=== PATIENT | female | born 1990 | race African-American/Black ===

== ENCOUNTER 2017-08-02 19:15 | Emergency (ER) | payer OTHER, SELFPAY ==
[2017-08-02] MEDS ORDERED: Lidocaine 2% w/Epinephrine 1:200K 20 ML VIAL ONE (19:39)
[2017-08-02] MEDS ORDERED: Clindamycin 150 MG CAP ONE (19:39)
[2017-08-02] MEDS ORDERED: HYDROcodone/Acetaminophen 5/325 mg Tablet ONE (20:10)
[2017-08-02] MEDS ORDERED: Bacitracin Zinc 1 Packet ONE (20:11)
[2017-08-02] MEDS ORDERED: Acetaminophen 325 MG TAB ONE (20:11)
== END 2017-08-02 20:21 | disposition home or self-care (01) ==
LOC: MADERS 19:15
DX: L02.415 Cutaneous abscess of right lower limb (principal)
CPT/HCPCS: 10060

== ENCOUNTER 2017-09-17 20:00 | Emergency (ER) | payer OTHER ==
[2017-09-17 20:37] LABS: Bilirubin Negative (Negative); Blood, Urine Negative (Negative); Clarity Clear (Clear); Glucose, Urine (Dipstick) Negative (Negative); Leukocyte Negative (Negative); Nitrite Negative (Negative); Protein, Urine (Dipstick) Negative (Neg-Trace); Specific Gravity, Urine 1.025 (1.005-1.030); pH, Urine 6.5 (5.0-9.0)
[2017-09-17 20:39] LABS: Pregnancy Test - Urine (BHCG) Negative (Negative); Pregu Control Background? CLEAR/WHITE (CLR/WHITE); Pregu Control Bar Appear? YES (CONTROL BAR); Specific Gravity 1.025 (1.002-1.036)
== END 2017-09-17 20:52 | disposition home or self-care (01) ==
LOC: MADERS 20:00
DX: R10.30 Lower abdominal pain, unspecified (principal)
CPT/HCPCS: 81003; 81025; 99284

== ENCOUNTER 2017-12-13 23:55 | Emergency (ER) | payer OTHER, SELFPAY | END 2017-12-14 00:36 | disposition left against medical advice (07) | LOC: MADERS 23:55 | DX: Z53.21 Procedure and treatment not carried out due to patient leaving prior to being seen by health care provider (principal) ==

== ENCOUNTER 2019-01-12 08:54 | Emergency (ER) | payer MEDICAID, OTHER ==
[2019-01-12] MEDS ORDERED: Ondansetron ODT 4 MG TAB ONE (09:23)
== END 2019-01-12 09:31 | disposition home or self-care (01) ==
LOC: MADERS 08:54
DX: R10.9 Unspecified abdominal pain (principal); R11.2 Nausea with vomiting, unspecified; R19.7 Diarrhea, unspecified
CPT/HCPCS: 99283; Q0162

== ENCOUNTER 2019-04-12 13:44 | Emergency (ER) | payer OTHER, SELFPAY ==
[2019-04-12 14:19] LABS: Bilirubin Small (Negative); Blood, Urine Negative (Negative); Clarity Hazy (Clear); Glucose, Urine (Dipstick) Negative (Negative); Leukocyte Negative (Negative); Nitrite Negative (Negative); Pregnancy Test - Urine (BHCG) POSITIVE (Negative); Pregu Control Background? CLEAR/WHITE (CLR/WHITE); Pregu Control Bar Appear? YES (CONTROL BAR); Protein, Urine (Dipstick) Negative (Neg-Trace); Specific Gravity 1.025 (1.002-1.036)
[2019-04-12 14:49] LABS: ALT (SGPT) 12 U/L (8-55); AST (SGOT) 17 U/L (5-34); Albumin 3.8 g/dL (3.5-5.0); Alkaline Phosphatase 66 U/L (40-110); Anion Gap 13 mmol/L (10-20); BUN (Urea Nitrogen) 9 mg/dL (7.0-18.7); Bilirubin, Total 0.7 mg/dL (0.2-1.2); Calc. Creatinine Clearance 0 mL/min (70-130); Calcium 8.4 mg/dL (7.8-10.44); Carbon Dioxide 24 mmol/L (22-29); Chloride 107 mmol/L (98-107); Estimated GFR-MDRD Greater than 90; Glucose 83 mg/dL (70-105); Lipase 21 U/L (8-78); Potassium 4.5 mmol/L (3.5-5.1); Protein, Total 6.8 g/dL (6.0-8.3); Sodium 139 mmol/L (136-145)
[2019-04-12 14:50] LABS: Band 1 % (5-11); Hemoglobin 12.1 g/dL (12.0-16.0); Lymphocytes 15 % (21-51); MDiff Complete? YES; Mean Corpuscular HGB CONC 30.8 g/dL (32.0-36.0); Mean Corpuscular Hemoglobin 29.9 pg (27.0-31.0); Mean Corpuscular Volume 97.1 fL (78.0-98.0); Mean Platelet Volume 7.4 fL (7.4-10.4); Monocytes 6 % (0-10); Neutrophil 62 % (42-75); Platelet Count 269 thou/uL (130-400); Platelet Morphology Comment Appears Adequate; RBC Distribution Width 11.7 % (11.5-14.5); RBC Morphology Normal; Reactive Lymphocytes 16 % (0-10); Red Blood Cell (RBC) Count 4.04 mill/uL (4.20-5.40); White Blood Cell (WBC) Count 4.9 thou/uL (4.8-10.8)
== END 2019-04-12 15:50 | disposition short-term general hospital (02) ==
LOC: MADERS 13:44
DX: O99.89 Other specified diseases and conditions complicating pregnancy, childbirth and the puerperium (principal); R10.30 Lower abdominal pain, unspecified; Z3A.01 Less than 8 weeks gestation of pregnancy
CPT/HCPCS: 36415; 80053; 81003; 81025; 83690; 84702; 85025; 99284

== ENCOUNTER 2019-06-04 13:22 | Emergency (ER) | payer OTHER, SELFPAY | END 2019-06-04 14:41 | disposition home or self-care (01) | LOC: MADERS 13:22 | DX: J11.1 Influenza due to unidentified influenza virus with other respiratory manifestations (principal) | CPT/HCPCS: 99283 ==

== ENCOUNTER → 2019-06-25 | Emergency (ER) | payer OTHER ==
[2019-06-25 18:05] LABS: Bilirubin Negative (Negative); Blood, Urine Large (Negative); Glucose, Urine (Dipstick) Negative (Negative); Leukocyte Trace (Negative); Nitrite Negative (Negative); Protein, Urine (Dipstick) 100 mg/dL (Neg-Trace)
[2019-06-25 18:14] LABS: Clarity Cloudy (Clear)
[2019-06-25 18:15] LABS: RBC/HPF Greater than 50 HPF (0-3)
[2019-06-25 18:16] LABS: Bacteria/HPF Rare-Few HPF (None Seen); WBC/HPF 0-3 HPF (0-3)
[2019-06-25 18:37] LABS: Band 1 % (5-11); Eosinophils 1 % (0-10); Hemoglobin 10.8 g/dL (12.0-16.0); Lymphocytes 13 % (21-51); MDiff Complete? YES; Mean Corpuscular HGB CONC 31.1 g/dL (32.0-36.0); Mean Corpuscular Hemoglobin 29.5 pg (27.0-31.0); Mean Corpuscular Volume 94.8 fL (78.0-98.0); Mean Platelet Volume 7.2 fL (7.4-10.4); Monocytes 4 % (0-10); Neutrophil 66 % (42-75); Platelet Count 264 thou/uL (130-400); Platelet Morphology Comment Appears Adequate; Reactive Lymphocytes 15 % (0-10); Red Blood Cell (RBC) Count 3.66 mill/uL (4.20-5.40); White Blood Cell (WBC) Count 7.6 thou/uL (4.8-10.8)
[2019-06-25 18:54] LABS: Anion Gap 13 mmol/L (10-20); BUN (Urea Nitrogen) 9 mg/dL (7.0-18.7); Calc. Creatinine Clearance 0 mL/min (70-130); Calcium 8.4 mg/dL (7.8-10.44); Carbon Dioxide 23 mmol/L (22-29); Chloride 106 mmol/L (98-107); Estimated GFR-MDRD Greater than 90; Glucose 81 mg/dL (70-105); Potassium 4.4 mmol/L (3.5-5.1); Sodium 138 mmol/L (136-145)
== END ==
LOC: MADERS 17:36
DX: O99.89 Other specified diseases and conditions complicating pregnancy, childbirth and the puerperium (principal); R31.9 Hematuria, unspecified; Z3A.16 16 weeks gestation of pregnancy
CPT/HCPCS: 36415; 80048; 81003; 81015; 85025; 86900; 86901; 87086; 99283

== ENCOUNTER 2019-09-25 07:05 | Outpatient (CLI) | payer OTHER ==
[2019-09-25 09:20] LABS: Band 3 % (5-11); Eosinophils 1 % (0-10); Hemoglobin 10.9 g/dL (12.0-16.0); Lymphocytes 11 % (21-51); MDiff Complete? YES; Mean Corpuscular HGB CONC 31.5 g/dL (32.0-36.0); Mean Corpuscular Hemoglobin 29.8 pg (27.0-31.0); Mean Corpuscular Volume 94.5 fL (78.0-98.0); Monocytes 9 % (0-10); Neutrophil 74 % (42-75); Platelet Count 215 thou/uL (130-400); Platelet Morphology Comment Appears Adequate; RBC Distribution Width 12.5 % (11.5-14.5); Reactive Lymphocytes 2 % (0-10); Red Blood Cell (RBC) Count 3.68 mill/uL (4.20-5.40)
[2019-09-25 13:15] LABS: HIV (1/2) Antibody/Antigen Non-Reactive (NonReactive); HIV 1/2 INDEX 0.09 S/CO (<1.00)
[2019-09-25 18:43] LABS: Syphilis Antibody Nonreactive (Nonreactive); Syphilis Antibody Index 0.04 S/CO (<1.00 Non-Reactive)
== END 2019-09-25 07:06 | disposition home or self-care (01) ==
LOC: MADLABBHPM 07:05
PROVIDERS: ATTEND Family Medicine
DX: O09.893 Supervision of other high risk pregnancies, third trimester (principal)
CPT/HCPCS: 36415; 82950; 85025; 86780; 87389

== ENCOUNTER 2019-10-03 07:12 | Outpatient (CLI) | payer OTHER | END 2019-10-03 07:13 | disposition home or self-care (01) | LOC: MADLABBHPM 07:12 | PROVIDERS: ATTEND Family Medicine | DX: O09.893 Supervision of other high risk pregnancies, third trimester (principal) | CPT/HCPCS: 36415; 82951; 82952 ==

== ENCOUNTER 2024-03-24 19:54 | Emergency (ER) | payer BC, OTHER ==
[2024-03-24] MEDS ORDERED: Metoclopramide HCl 10 MG (2 mL) VIAL ONE (20:22)
[2024-03-24] MEDS ORDERED: diphenhydrAMINE 50 MG/ML VIAL ONE (20:22)
[2024-03-24] MEDS ORDERED: Ketorolac Tromethamine 30 MG (1 mL) VIAL ONE (20:23)
== END 2024-03-24 21:15 | disposition home or self-care (01) ==
LOC: MADERS 19:54
DX: H61.22 Impacted cerumen, left ear (principal); G44.209 Tension-type headache, unspecified, not intractable
CPT/HCPCS: 69210; 96365; 96375; J1200; J1885; J2765

== ENCOUNTER 2025-03-01 14:54 | Emergency (ER) | payer BC | END 2025-03-01 16:03 | disposition home or self-care (01) | LOC: MADERS 14:54 | DX: B34.9 Viral infection, unspecified (principal); H61.21 Impacted cerumen, right ear; Z20.822 Contact with and (suspected) exposure to COVID-19 | CPT/HCPCS: 87428; 99283 ==